=== PATIENT | male | born 1980 | race Caucasian/White ===

== ENCOUNTER 2017-06-13 19:42 | Inpatient (IN) | payer BC, OTHER ==
[~2017-06-13] VITALS: Ht 185.4 cm; Wt 90.7 kg
[~2017-06-13 19:42] MED LIST: FLOMAX0.4 MG PO; HYDROCODONE-AP1 EAC6 PO; IBUPROFEN 800800 M1 PO; IBUPROFEN 800800 MG PO; NOHOMEMEDICATIONS; NORCO 5-325 TA1 EACH PO; PERCOCET 5-3251 EACH PO; ZOFRAN ODT4 MG PO
[2017-06-13 20:02] LABS: ABSOLUTE NEUTROPHILS 6.7 thou/uL (1.4-8.2); BASOPHILS 0.6 % (0.0-2.0); EOSINOPHILS 2.3 % (0.0-3.0); HEMATOCRIT 43.9 % (42.0-52.0); HEMOGLOBIN 15.6 gm/dL (14.0-18.0); LYMPHOCYTES 28.1 % (24.0-44.0); MCH 31.7 pg (26.0-34.0); MCHC 35.5 g/dL (28.0-37.0); MCV 89.4 fL (80.0-100.0); MONOCYTES 7.9 % (1.0-8.0); PLATELET COUNT 199 thou/uL (150-400); POLYS 61.1 % (36.0-66.0); RBC 4.91 mil/uL (4.50-6.00); RDW 12.4 % (10.5-14.5); WBC 10.9 thou/uL (4.0-11.0)
[2017-06-13 20:05] LABS: MANUAL DIFF NO
[2017-06-13 20:10] LABS: CALCIUM 9.4 mg/dL (8.5-10.1); POTASSIUM 3.4 mmol/L (3.5-5.1)
[2017-06-13 20:16] LABS: ALBUMIN 4.3 g/dL (3.4-5.0); TOTAL BILIRUBIN 0.8 mg/dL (<0.1-1.0); TOTAL PROTEIN 7.3 g/dL (6.4-8.2)
[2017-06-13 20:44] LABS: URINE BILIRUBIN NEGATIVE (Negative); URINE BLOOD 3+ (Negative); URINE COLOR YELLOW; URINE GLUCOSE-RANDOM* NEGATIVE (Negative); URINE KETONES 1+ (Negative); URINE LEUKOCYTES-REFLEX NEGATIVE (Negative); URINE PROTEIN (DIPSTICK) NEGATIVE (Negative); URINE UROBILINOGEN 0.2 E.U./dl (0.2-1.0)
[2017-06-13 20:55] LABS: CASTS None Seen /LPF (None Seen); CRYSTALS None Seen /LPF (None Seen); URINE RBC >20 Many /HPF (0-2)
[2017-06-13 20:56] LABS: SQUAMOUS 0-3 Few /LPF (0-3); URINE WBC-REFLEX 0-5 Rare /HPF (0-5)
[2017-06-13 21:32] VITALS: BP 127/75
[2017-06-13 22:58] VITALS: BP 114/67
[2017-06-13 23:46] VITALS: BP 125/79
[2017-06-13 23:52] VITALS: BP 125/79
[2017-06-14 03:42] VITALS: BP 122/79
[2017-06-14 07:48] VITALS: BP 114/70
[2017-06-14 08:35] VITALS: BP 114/70
== END 2017-06-14 09:14 | disposition home or self-care (01) | DRG 694 ==
LOC: ER 19:42 → 4E 21:33 → EROBS 21:33 → 4E 23:40 → ENTRNSPT 06-14 09:06 → EDTRNSPTSTS 06-14 09:08 → 4E 06-14 09:14
PROVIDERS: Physician Assistant
DX: N13.4 Hydroureter (principal); N20.2 Calculus of kidney with calculus of ureter; F17.210 Nicotine dependence, cigarettes, uncomplicated; Z87.442 Personal history of urinary calculi; Z88.5 Allergy status to narcotic agent; Z23 Encounter for immunization
CPT/HCPCS: 10783